=== PATIENT | male | born 1970 | race Caucasian/White ===

== ENCOUNTER 2024-04-29 11:29 | Emergency (ER) | payer OTHER ==
[2024-04-29 11:46] VITALS: BP 130/91; PULSE 97; RESP 17; TEMP 97.4; BMI 31.5
[2024-04-29] MEDS ORDERED: ACETAMINOPHEN INJECTION 100 ML ONE (12:57)
[2024-04-29] MEDS: ACETAMINOPHEN 1000 MG/100 ML BAG IVPB ONE (13:00)
[2024-04-29 13:02] LABS: HEMATOCRIT 47.8 % (35.4-49); MCH 27.9 pg (25.7-33.7); MCHC 33.5 g/dl (32.0-35.9); MEAN CELL VOLUME 83.3 fl (80-96); MEAN PLT VOLUME 7.6 fl (7.5-11.1); PLATELET COUNT 228 10^3/uL (134-434); RBC 5.74 M/mm3 (4.00-5.60); RDW 15.5 % (11.9-15.9); WHITE BLOOD COUNT 6.3 K/mm3 (4.0-10.0)
[2024-04-29 13:41] LABS: ALBUMIN 3.8 g/dl (3.4-5.0); BLOOD UREA NITROGEN 23.2 mg/dL (7-18); CALCIUM 9.5 mg/dL (8.5-10.1); POTASSIUM 4.9 mmol/L (3.5-5.1)
[2024-04-29 13:47] LABS: BILIRUBIN,TOTAL 0.4 mg/dL (0.2-1); CREATININE 1.4 mg/dL (0.55-1.3)
[2024-04-29 14:06] LABS: INR 1.38 (0.83-1.09); PROTHROMBIN TIME (PATIENT) 15.7 SEC (9.7-13.0)
[2024-04-29 14:08] LABS: ACTIVATED PTT 96.8 SECONDS (25.2-36.5)
[2024-04-29] MEDS ORDERED: DALBAVANCIN HCL 500 MG VIAL (RESTRICTED TO ID ONLY) IVPB ONE (16:27)
[2024-04-29] MEDS: DALBAVANCIN HCL 1,500 MG in DEXTROSE 5%-WATER - 500 ML IVPB ONE (16:55)
== END 2024-04-29 17:47 | disposition home or self-care (01) ==
LOC: JER 11:29
PROC: 3E03329 Introduction of Other Anti-infective into Peripheral Vein, Percutaneous Approach (ICD-10-PCS; principal; 2024-04-29)
PROC: 3E033NZ Introduction of Analgesics, Hypnotics, Sedatives into Peripheral Vein, Percutaneous Approach (ICD-10-PCS; 2024-04-29)
DX: S81.801A Unspecified open wound, right lower leg, initial encounter (principal); S81.802A Unspecified open wound, left lower leg, initial encounter; R60.0 Localized edema; X58.XXXA Exposure to other specified factors, initial encounter
CPT/HCPCS: 36415; 80053; 83880; 85027; 85610; 85651; 85730; 87070; 87186; 87205; 93005; 93010; 93970-TC; 96365; 96375; 99285-25; J0131; J0875

== ENCOUNTER 2024-05-10 14:09 | Inpatient (IN) | payer OTHER ==
[2024-05-10] MEDS ORDERED: ACETAMINOPHEN 325 MG TABLET (FP) ONE (14:52)
[2024-05-10 14:53] VITALS: BMI 35.6
[2024-05-10] MEDS ORDERED: PIPERACILLIN/TAZOB 3.375 GM 3.375 GM/50 ML BAG IVPB ONE (14:53)
[2024-05-10] MEDS: PIPERACILLIN/TAZOB 3.375 GM 3.375 GM in DEXTROSE 5%-WATER - 50 ML IVPB ONE (15:16)
[2024-05-10] MEDS: ACETAMINOPHEN 500 MG TABLET (FP) PO ONE (15:16)
[2024-05-10 15:29] LABS: BASO % 0.7 % (0-2.0); EOS % 2.3 % (0-4.5); HEMATOCRIT 45.5 % (35.4-49); HEMOGLOBIN 14.9 GM/dL (11.7-16.9); LYMPH % 31.9 % (8-40); MCH 27.7 pg (25.7-33.7); MCHC 32.7 g/dl (32.0-35.9); MEAN CELL VOLUME 84.9 fl (80-96); MEAN PLT VOLUME 7.8 fl (7.5-11.1); MONO % 10.3 % (3.8-10.2); NEUT % 54.8 % (42.8-82.8); PLATELET COUNT 222 10^3/uL (134-434); RBC 5.36 M/mm3 (4.00-5.60); RDW 15.6 % (11.9-15.9); WHITE BLOOD COUNT 6.2 K/mm3 (4.0-10.0)
[2024-05-10 16:22] LABS: POTASSIUM 4.6 mmol/L (3.5-5.1)
[2024-05-10 16:23] LABS: CALCIUM 8.8 mg/dL (8.5-10.1)
[2024-05-10 16:24] LABS: ALBUMIN 3.7 g/dl (3.4-5.0); BLOOD UREA NITROGEN 22.1 mg/dL (7-18)
[2024-05-10] MEDS: VANCOMYCIN PREMIX 1.75 GM 1,750 MG/350 ML PIGGYBACK IVPB ONE (16:26)
[2024-05-10 16:27] LABS: CREATININE 1.5 mg/dL (0.55-1.3)
[2024-05-10 16:29] LABS: BILIRUBIN,TOTAL 0.5 mg/dL (0.2-1); TOT PROT 8.1 g/dl (6.4-8.2)
[2024-05-10] MEDS: LACTATED RINGERS SOLUTION 1,000 ML/1,000 ML INFUS.BAG IV SCH (17:21)
[2024-05-10] MEDS: ENOXAPARIN NA (PORCINE) 120 MG/0.8 ML DISP.SYRIN SQ SCH (18:44)
[2024-05-10] MEDS ORDERED: MEROPENEM 1 GM VIAL (RESTRICTED TO ID) IVPB ONE (20:03)
[2024-05-10] MEDS ORDERED: DEXTROSE 5%-WATER 100 ML IVPB ONE (20:03)
[2024-05-10] MEDS: MEROPENEM 1 GM in DEXTROSE 5%-WATER 100 ML IVPB SCH (20:22)
[2024-05-10] MEDS ORDERED: traZODone HCL 100 MG TABLET (FP) ONE (22:12)
[2024-05-10] MEDS ORDERED: GABAPENTIN 300 MG CAPSULE ONE (22:12)
[2024-05-10] MEDS: GABAPENTIN 300 MG CAPSULE PO SCH (22:21)
[2024-05-10] MEDS: traZODone HCL 100 MG TABLET (FP) PO SCH (22:21)
[2024-05-11] MEDS: ACETAMINOPHEN 1000 MG/100 ML BAG IVPB PRN (01:16)
[2024-05-11] MEDS: VANCOMYCIN/WATER 1250 MG 1,250 MG/250 ML BAG IVPB SCH (06:20)
[2024-05-11 08:02] LABS: BASO % 0.8 % (0-2.0); HEMATOCRIT 40.5 % (35.4-49); HEMOGLOBIN 13.5 GM/dL (11.7-16.9); LYMPH % 34.9 % (8-40); MCH 27.8 pg (25.7-33.7); MCHC 33.4 g/dl (32.0-35.9); MEAN CELL VOLUME 83.4 fl (80-96); MONO % 11.1 % (3.8-10.2); NEUT % 50.2 % (42.8-82.8); PLATELET COUNT 169 10^3/uL (134-434); RBC 4.85 M/mm3 (4.00-5.60); RDW 15.2 % (11.9-15.9); WHITE BLOOD COUNT 4.5 K/mm3 (4.0-10.0)
[2024-05-11 08:59] LABS: POTASSIUM 4.1 mmol/L (3.5-5.1)
[2024-05-11 09:06] LABS: CALCIUM 8.3 mg/dL (8.5-10.1); CREATININE 1.2 mg/dL (0.55-1.3)
[2024-05-11 09:20] LABS: BLOOD UREA NITROGEN 19.5 mg/dL (7-18)
[2024-05-11] MEDS: FAMOTIDINE 20 MG TABLET PO SCH (10:52)
[2024-05-11] MEDS: amLODIPine BESYLATE 2.5 MG TABLET (FP) PO SCH (10:52)
[2024-05-11] MEDS ORDERED: MEROPENEM 1 GM in DEXTROSE 5%-WATER 100 ML IVPB SCH (11:30)
[2024-05-11] MEDS: MEROPENEM 1 GM in DEXTROSE 5%-WATER 100 ML IVPB SCH (17:33)
[2024-05-12] MEDS: VANCOMYCIN/WATER FOR INJ (PEG) 1,000 MG/200 ML BAG IVPB SCH (06:06)
[2024-05-12] MEDS: MEROPENEM 1 GM in DEXTROSE 5%-WATER 100 ML IVPB SCH (07:48)
[2024-05-12] MEDS: VANCOMYCIN/WATER 1250 MG 1,250 MG/250 ML BAG IVPB SCH (07:49)
[2024-05-12 08:29] LABS: POTASSIUM 4.4 mmol/L (3.5-5.1)
[2024-05-12 08:32] LABS: CALCIUM 8.6 mg/dL (8.5-10.1)
[2024-05-12 08:33] LABS: BLOOD UREA NITROGEN 18.4 mg/dL (7-18)
[2024-05-12 08:36] LABS: CREATININE 1.3 mg/dL (0.55-1.3)
[2024-05-12 08:38] LABS: BILIRUBIN,TOTAL 0.4 mg/dL (0.2-1); TOT PROT 6.4 g/dl (6.4-8.2)
[2024-05-12 09:07] LABS: BASO % 1.3 % (0-2.0); EOS % 2.7 % (0-4.5); HEMATOCRIT 40.5 % (35.4-49); HEMOGLOBIN 13.8 GM/dL (11.7-16.9); LYMPH % 34.2 % (8-40); MCH 28.1 pg (25.7-33.7); MCHC 34.1 g/dl (32.0-35.9); MEAN CELL VOLUME 82.5 fl (80-96); MEAN PLT VOLUME 8.2 fl (7.5-11.1); MONO % 10.8 % (3.8-10.2); PLATELET COUNT 160 10^3/uL (134-434); RBC 4.92 M/mm3 (4.00-5.60); RDW 15.4 % (11.9-15.9); WHITE BLOOD COUNT 3.9 K/mm3 (4.0-10.0)
[2024-05-12] MEDS: ACETAMINOPHEN 1000 MG/100 ML BAG IVPB PRN (13:29)
[2024-05-13] MEDS ORDERED: MEROPENEM 1 GM VIAL (RESTRICTED TO ID) IVPB ONE (00:55)
[2024-05-13 08:00] LABS: BASO % 0.9 % (0-2.0); EOS % 2.9 % (0-4.5); HEMATOCRIT 42.6 % (35.4-49); HEMOGLOBIN 14.5 GM/dL (11.7-16.9); LYMPH % 42.7 % (8-40); MCH 28.2 pg (25.7-33.7); MEAN CELL VOLUME 82.9 fl (80-96); MEAN PLT VOLUME 7.7 fl (7.5-11.1); MONO % 10.1 % (3.8-10.2); NEUT % 43.4 % (42.8-82.8); PLATELET COUNT 166 10^3/uL (134-434); RBC 5.14 M/mm3 (4.00-5.60); RDW 15.5 % (11.9-15.9); WHITE BLOOD COUNT 3.9 K/mm3 (4.0-10.0)
[2024-05-13 08:10] LABS: CALCIUM 8.9 mg/dL (8.5-10.1); POTASSIUM 4.4 mmol/L (3.5-5.1)
[2024-05-13 08:12] LABS: BLOOD UREA NITROGEN 18.2 mg/dL (7-18)
[2024-05-13 08:14] LABS: CREATININE 1.2 mg/dL (0.55-1.3)
[2024-05-13] MEDS: COLLAGENASE CLOSTRIDIUM HIST. 30 GRAMS TUBE TP SCH (10:54)
[2024-05-13] MEDS: MINERAL OIL/PET HY-PHL TOPICAL OINTMENT 454 GM JAR TP SCH (13:51)
[2024-05-13] MEDS: ACETAMINOPHEN 1000 MG/100 ML BAG IVPB PRN (19:02)
[2024-05-14] MEDS: VANCOMYCIN/WATER FOR INJ (PEG) 1 GM/200 ML BAG IVPB SCH (22:44)
[2024-05-15] MEDS: ACETAMINOPHEN 1000 MG/100 ML BAG IVPB ONE (06:22)
[2024-05-15] MEDS: ACETAMINOPHEN 1000 MG/100 ML BAG IVPB PRN (12:32)
[2024-05-16 08:00] LABS: BASO % 1.1 % (0-2.0); EOS % 2.8 % (0-4.5); HEMOGLOBIN 14.9 GM/dL (11.7-16.9); MCH 27.5 pg (25.7-33.7); MCHC 33.1 g/dl (32.0-35.9); MEAN PLT VOLUME 7.6 fl (7.5-11.1); MONO % 10.3 % (3.8-10.2); NEUT % 46.8 % (42.8-82.8); PLATELET COUNT 194 10^3/uL (134-434); RBC 5.42 M/mm3 (4.00-5.60); RDW 15.9 % (11.9-15.9); WHITE BLOOD COUNT 4.3 K/mm3 (4.0-10.0)
[2024-05-16 08:41] LABS: POTASSIUM 4.6 mmol/L (3.5-5.1)
[2024-05-16 08:43] LABS: ALBUMIN 3.4 g/dl (3.4-5.0); BLOOD UREA NITROGEN 19.2 mg/dL (7-18); CALCIUM 8.9 mg/dL (8.5-10.1)
[2024-05-16 08:47] LABS: CREATININE 1.5 mg/dL (0.55-1.3)
[2024-05-16 08:48] LABS: BILIRUBIN,TOTAL 0.3 mg/dL (0.2-1); TOT PROT 7.1 g/dl (6.4-8.2)
[2024-05-16] MEDS: DOXYCYCLINE HYCLATE 100 MG CAPSULE PO SCH (18:21)
[2024-05-17 08:51] LABS: POTASSIUM 4.4 mmol/L (3.5-5.1)
[2024-05-17 08:59] LABS: CALCIUM 9.3 mg/dL (8.5-10.1)
[2024-05-17 09:03] LABS: CREATININE 1.4 mg/dL (0.55-1.3)
[2024-05-17] MEDS ORDERED: ACETAMINOPHEN 1000 MG/100 ML BAG IVPB PRN (20:28)
[2024-05-17] MEDS: ACETAMINOPHEN 1000 MG/100 ML BAG IVPB PRN (20:49)
[2024-05-18] MEDS: ERTAPENEM SODIUM 1 GM in SODIUM CHLORIDE 50 ML IVPB SCH (10:43)
[2024-05-19] MEDS: ACETAMINOPHEN 1000 MG/100 ML BAG IVPB ONE (06:19)
[2024-05-19] MEDS: ACETAMINOPHEN 1000 MG/100 ML BAG IVPB PRN (16:28)
[2024-05-20 07:40] LABS: BASO % 0.9 % (0-2.0); EOS % 2.5 % (0-4.5); HEMATOCRIT 45.4 % (35.4-49); HEMOGLOBIN 14.8 GM/dL (11.7-16.9); LYMPH % 44.5 % (8-40); MCH 27.5 pg (25.7-33.7); MCHC 32.6 g/dl (32.0-35.9); MEAN CELL VOLUME 84.4 fl (80-96); MEAN PLT VOLUME 8.1 fl (7.5-11.1); MONO % 10.2 % (3.8-10.2); NEUT % 41.9 % (42.8-82.8); PLATELET COUNT 183 10^3/uL (134-434); RBC 5.37 M/mm3 (4.00-5.60); RDW 15.3 % (11.9-15.9); WHITE BLOOD COUNT 4.3 K/mm3 (4.0-10.0)
[2024-05-20 07:56] LABS: POTASSIUM 4.3 mmol/L (3.5-5.1)
[2024-05-20 07:59] LABS: ALBUMIN 3.6 g/dl (3.4-5.0); BLOOD UREA NITROGEN 23.6 mg/dL (7-18); CALCIUM 8.9 mg/dL (8.5-10.1); MAGNESIUM 1.8 mg/dL (1.8-2.4)
[2024-05-20 08:03] LABS: CREATININE 1.3 mg/dL (0.55-1.3)
[2024-05-20 08:04] LABS: TOT PROT 7.1 g/dl (6.4-8.2)
[2024-05-20 08:06] LABS: BILIRUBIN,TOTAL 0.4 mg/dL (0.2-1)
[2024-05-20] MEDS: amLODIPine BESYLATE 2.5 MG TABLET (FP) PO SCH (13:30)
[2024-05-20] MEDS: ACETAMINOPHEN 1000 MG/100 ML BAG IVPB PRN (16:45)
[2024-05-21 08:26] LABS: BASO % 0.8 % (0-2.0); EOS % 2.2 % (0-4.5); HEMATOCRIT 45.8 % (35.4-49); HEMOGLOBIN 15.5 GM/dL (11.7-16.9); LYMPH % 40.7 % (8-40); MCH 28.2 pg (25.7-33.7); MEAN CELL VOLUME 83.1 fl (80-96); MEAN PLT VOLUME 8.2 fl (7.5-11.1); MONO % 10.2 % (3.8-10.2); NEUT % 46.1 % (42.8-82.8); PLATELET COUNT 183 10^3/uL (134-434); RBC 5.51 M/mm3 (4.00-5.60); RDW 15.7 % (11.9-15.9); WHITE BLOOD COUNT 3.9 K/mm3 (4.0-10.0)
[2024-05-21 08:33] LABS: POTASSIUM 4.7 mmol/L (3.5-5.1)
[2024-05-21 08:56] LABS: ALBUMIN 3.8 g/dl (3.4-5.0); CALCIUM 9.4 mg/dL (8.5-10.1)
[2024-05-21 08:57] LABS: BLOOD UREA NITROGEN 21.7 mg/dL (7-18)
[2024-05-21 08:59] LABS: CREATININE 1.3 mg/dL (0.55-1.3)
[2024-05-21 09:01] LABS: BILIRUBIN,TOTAL 0.4 mg/dL (0.2-1); TOT PROT 7.4 g/dl (6.4-8.2)
[2024-05-21] MEDS: LOPERAMIDE HCL 2 MG CAPSULE PO ONE (10:10)
[2024-05-21] MEDS: LACTOBACILLUS ACIDOPHILUS 1 TABLET PO ONE (10:10)
[2024-05-21 12:27] VITALS: RESP 18
[2024-05-21] MEDS: ACETAMINOPHEN 1000 MG/100 ML BAG IVPB PRN (19:04)
[2024-05-22] MEDS: ERTAPENEM SODIUM 0.5 GM in SODIUM CHLORIDE 50 ML IVPB ONE (06:50)
[2024-05-22 09:23] VITALS: BP 124/87; PULSE 90; TEMP 97.5
[2024-05-22] MEDS: LOPERAMIDE HCL 2 MG CAPSULE PO ONE (09:24)
== END 2024-05-22 10:05 | disposition home or self-care (01) | DRG 603 ==
LOC: JER 14:09 → JERBED 16:47 → J7W 05-11 02:01
PROVIDERS: ADMIT Internal Medicine; ATTEND Nurse Practitioner Family
DX: L03.116 Cellulitis of left lower limb (principal); L97.929 Non-pressure chronic ulcer of unspecified part of left lower leg with unspecified severity; L97.919 Non-pressure chronic ulcer of unspecified part of right lower leg with unspecified severity; L03.115 Cellulitis of right lower limb; I10 Essential (primary) hypertension; E66.9 Obesity, unspecified; Z68.37 Body mass index [BMI] 37.0-37.9, adult; Z72.0 Tobacco use; M25.551 Pain in right hip; I87.8 Other specified disorders of veins; I73.9 Peripheral vascular disease, unspecified; Z86.718 Personal history of other venous thrombosis and embolism; Z59.82 Transportation insecurity
CPT/HCPCS: 36415; 71045-TC-FY; 73502-TC-RT-FY; 80048; 80053; 83735; 85025; 93005; 93010; 93925-TC; 97116-GP; 97161-GP; 99285-25; G0480; J0131; J3370